=== PATIENT | male | born 1975 ===

== ENCOUNTER 2020-05-17 18:37 | Emergency (ER) | payer BC ==
[~2020-05-17] VITALS: Ht 177.8 cm; Wt 80.0 kg
[2020-05-17] MEDS ORDERED: KETOROLAC 30 MG/1 ML ONE (19:12)
[2020-05-17] MEDS ORDERED: ONDANSETRON 2MG/ML, 2ML ONE (19:12)
[2020-05-17] MEDS ORDERED: HYDROmorphone 2 MG/ML, 1ML ONE (19:12)
[2020-05-17] MEDS: HYDROmorphone 2 MG/ML, 1ML IVPush PRN ×2 (19:20→21:19)
--- NOTE | 2020-05-17 19:23 | NUR ---
THIS IS A 44 YO MALE COMING IN FOR ACUTE ONSET RLQ ABD PAIN RADIATING TO RIGHT FLANK, PAIN STARTED AT ABOUT 1500, REBOUND TENDERNESS NOTED, RATED 10/10. PATIENT ALSO BRADYCARDIC AT 35-45 BPM, SINUS BRADYCARDIA NOTED, EKG DONE. PATIENT A&OX4, C/O N/V NO DIARRHEA. DENIES ANY MEDICAL OR SURGICAL HX. ALL MONITORING IN PLACE. ERP AT BEDSIDE FOR EVAL. PIV PLACED, MEDICATED PER EMAR
[2020-05-17 19:29] LABS: MEAN CORPUSCULAR HEMOGLOBIN 31.2 pg (27.5-34.5); MEAN CORPUSCULAR HGB CONC 33.7 g/dL (33.2-36.2); MEAN CORPUSCULAR VOLUME 92.7 fL (81-97); MEAN PLATELET VOLUME 8.9 fL (7.4-10.4); PLATELET COUNT 242 x10^3/uL (130-400); RED BLOOD COUNT 4.92 x10^6/uL (4.38-5.82); RED CELL DISTRIBUTION WIDTH 13.2 % (9.4-14.8)
[2020-05-17] MEDS ORDERED: KETOROLAC 30 MG/1 ML IVPush ONE (19:30)
[2020-05-17] MEDS ORDERED: SODIUM CHLORIDE FLUSH 10ML SYR IVF ONE (19:30)
[2020-05-17] MEDS ORDERED: ONDANSETRON 2MG/ML, 2ML IVPush ONE (19:30)
[2020-05-17 19:38] LABS: ALANINE AMINOTRANSFERASE 39 U/L (12-78); ALBUMIN 4.2 g/dL (3.4-5.0); ANION GAP 9 mmol/L (5-15); CALCIUM 9.3 mg/dL (8.5-10.1); CHLORIDE 108 mmol/L (98-107); CREATININE 1.35 mg/dL (0.7-1.3)
[2020-05-17 19:40] LABS: ALKALINE PHOSPHATASE 75 U/L (45-117); BILIRUBIN,TOTAL 0.5 mg/dL (0.2-1.0); TOTAL PROTEIN 7.6 g/dL (6.4-8.2)
[2020-05-17 19:51] LABS: BASOPHILS # (AUTO) 0.01 x10^3/uL (0-0.1); BASOPHILS % (AUTO) 0 % (0-1); EOSINOPHILS # (AUTO) 0.02 x10^3/uL (0-0.4); EOSINOPHILS % (AUTO) 0 % (1-7); LYMPHOCYTES # (AUTO) 2.48 x10^3/uL (1-3.4); LYMPHOCYTES % (AUTO) 12 % (22-44); MD SCAN; MONOCYTES # (AUTO) 0.31 x10^3/uL (0.2-0.8); MONOCYTES % (AUTO) 2 % (2-9); NEUTROPHILS # (AUTO) 17.27 x10^3/uL (1.8-6.8); NEUTROPHILS % (AUTO) 86 % (42-75)
--- NOTE | 2020-05-17 19:55 | NUR ---
TASK RN: PT RETURNED FROM CT, NAD NOTED. PT REPORTS SIGNIFICANT IMPROVEMENT IN PAIN, 5/10 AFTER MEDICATIONS. BP/SPO2/ECG MONTORING IN PLACE. SINUSBRADY ON MONITOR. PT DENIES CP/DIZZINESS/WEAKNESS/NAUSEA. PT AWARE OF NEED FOR UA. FRIEND AT BEDSIDE.
--- NOTE | 2020-05-17 20:17 | NUR ---
UA COLLECTED AND WALKED TO LAB
[2020-05-17 20:34] LABS: MICROSCOPIC INDICATED
--- NOTE | 2020-05-17 21:00 | NUR ---
ERP IN ROOM TO DISCUSS PLAN OF CARE AND CARDIOLOGY FOLLOW UP FOR BRADYCARDIA
[2020-05-17] MEDS ORDERED: HYDROmorphone 1 MG/ML, 1ML INJ ONE (21:12)
--- NOTE | 2020-05-17 21:20 | NUR ---
PATIENT MEDICATED PER EMAR
[2020-05-17 21:48] VITALS: BP 139/64
--- NOTE | 2020-05-17 21:53 | NUR ---
Patient given discharge instructions and they have confirmed that they understand the instructions. Patient ambulatory with steady gait. Addendum: 05/17/20 at 2154 by CLARISA Patient wheeled to discharge
== END 2020-05-17 21:56 | disposition home or self-care (01) ==
LOC: ED 20:38
DX: N13.2 Hydronephrosis with renal and ureteral calculous obstruction (principal); R31.9 Hematuria, unspecified; R11.2 Nausea with vomiting, unspecified; R00.1 Bradycardia, unspecified
CPT/HCPCS: 36415; 74176; 80053; 81001; 83690; 85025; 87086; 93005; 96374; 96375; 96376; 99285; J1170; J1885; J2405

== ENCOUNTER 2020-05-23 00:08 | Emergency (ER) | payer BC ==
[~2020-05-23] VITALS: Ht 177.8 cm; Wt 83.0 kg
--- NOTE | 2020-05-23 00:27 | NUR ---
[employer] MANA[employer]: PT. TO ROOM FROM LOBBY AT THIS TIME.
[2020-05-23] MEDS ORDERED: HYDROmorphone 1 MG/ML, 1ML INJ ONE (00:42)
[2020-05-23] MEDS ORDERED: KETOROLAC 30 MG/1 ML ONE (00:42)
[2020-05-23] MEDS ORDERED: ONDANSETRON 2MG/ML, 2ML ONE (00:43)
[2020-05-23] MEDS ORDERED: SODIUM CHLORIDE FLUSH 10ML SYR IVF ONE (01:00)
[2020-05-23] MEDS ORDERED: KETOROLAC 30 MG/1 ML IVPush ONE (01:00)
[2020-05-23] MEDS ORDERED: ONDANSETRON 2MG/ML, 2ML IVPush ONE (01:00)
[2020-05-23] MEDS ORDERED: HYDROmorphone 1 MG/ML, 1ML INJ IVPush PRN (01:00)
[2020-05-23] MEDS ORDERED: SODIUM CHLORIDE 0.9% 1,000ML IV ONE (01:00)
[2020-05-23 01:05] LABS: BASOPHILS # (AUTO) 0.02 x10^3/uL (0-0.1); BASOPHILS % (AUTO) 0 % (0-1); EOSINOPHILS # (AUTO) 0.26 x10^3/uL (0-0.4); EOSINOPHILS % (AUTO) 2 % (1-7); LYMPHOCYTES % (AUTO) 17 % (22-44); MD NO; MEAN CORPUSCULAR HEMOGLOBIN 31.4 pg (27.5-34.5); MEAN PLATELET VOLUME 8.7 fL (7.4-10.4); MONOCYTES # (AUTO) 0.63 x10^3/uL (0.2-0.8); MONOCYTES % (AUTO) 4 % (2-9); NEUTROPHILS # (AUTO) 11.14 x10^3/uL (1.8-6.8); NEUTROPHILS % (AUTO) 77 % (42-75); PLATELET COUNT 245 x10^3/uL (130-400); RED BLOOD COUNT 4.81 x10^6/uL (4.38-5.82); RED CELL DISTRIBUTION WIDTH 12.7 % (9.4-14.8)
[2020-05-23 01:12] LABS: ALBUMIN 3.5 g/dL (3.4-5.0); ANION GAP 9 mmol/L (5-15); CALCIUM 8.9 mg/dL (8.5-10.1); CHLORIDE 105 mmol/L (98-107); CREATININE 1.54 mg/dL (0.7-1.3)
[2020-05-23 01:23] VITALS: BP 125/79
--- NOTE | 2020-05-23 01:23 | NUR ---
Ua sent to lab at this time. No immediate needs from pt. Awaiting results.
[2020-05-23 01:39] LABS: MICROSCOPIC AUTO
== END 2020-05-23 02:01 | disposition home or self-care (01) ==
LOC: ED 01:01
DX: N13.2 Hydronephrosis with renal and ureteral calculous obstruction (principal); R10.9 Unspecified abdominal pain; E86.0 Dehydration; F17.200 Nicotine dependence, unspecified, uncomplicated
CPT/HCPCS: 36415; 80048; 81001; 82040; 85025; 96361; 96374; 96375; 99284; J1170; J1885; J2405; J7030